=== PATIENT | male | born 1995 | race Caucasian/White ===

== ENCOUNTER 2022-02-21 19:53 | Emergency (ER) | payer BC ==
[~2022-02-21] VITALS: Ht 165.1 cm; Wt 77.1 kg
[2022-02-21 20:07] VITALS: BP 142/95
--- NOTE | 2022-02-21 20:12 | NUR ---
Patient ambulated to chair C.
--- NOTE | 2022-02-21 20:24 | NUR ---
Dr. Poe at chair C and exam patient.
[2022-02-21] MEDS ORDERED: NACL 0.9% 1,000 ML IV ONE (20:35)
[2022-02-21] MEDS ORDERED: MECLIZINE 25 MG TAB PO ONE (20:35)
[2022-02-21] MEDS ORDERED: LORazepam 1 MG TAB PO ONE (20:40)
--- NOTE | 2022-02-21 20:40 | NUR ---
PT AMBULATED TO BED 10
--- NOTE | 2022-02-21 21:05 | NUR ---
pt to CT via w/c
[2022-02-21 21:48] LABS: ANION GAP 13.5 (8-16); CARBON DIOXIDE 29.3 mmol/L (21-32); CREATININE 1.1 mg/dL (0.6-1.3); POTASSIUM 3.8 mmol/L (3.5-5.1)
[2022-02-21] MEDS ORDERED: MECL-303 PO (22:37)
--- NOTE | 2022-02-21 22:55 | NUR ---
IV removed on the R AC, catheter intact and site benign. Applied folded 4x4 gauze and tape to stop bleeding.
[2022-02-21 23:00] VITALS: BP 138/71
--- NOTE | 2022-02-21 23:00 | NUR ---
Patient discharged with v/s stable. Written and verbal after care instructions given and explained. Patient alert, oriented and verbalized understanding of instructions. Ambulatory with steady gait. All questions addressed prior to discharge. ID band removed. Patient advised to follow up with PMD. Rx of Meclizine HCL given. Patient educated on indication of medication including possible reaction and side effects. Opportunity to ask questions provided and answered.
== END 2022-02-21 23:00 | disposition home or self-care (01) ==
LOC: MED 19:53
DX: R42 Dizziness and giddiness (principal); M54.2 Cervicalgia; R06.09 Other forms of dyspnea; F41.1 Generalized anxiety disorder
CPT/HCPCS: 36415; 70450; 70496; 70498; 80048; 93005; 96360; 99285; J7030; J8597; Q9967